=== PATIENT | male | born 1940 | race Caucasian/White ===

== ENCOUNTER 2016-03-22 15:30 | Emergency (ER) | payer OTHER ==
[~2016-03-22] VITALS: Ht 182.9 cm; Wt 132.4 kg
[~2016-03-22 15:30] MED LIST: Amaryl PO; Cozaar PO; Ecotrin PO; Hydrodiuril,Oretic,E PO; Januvia PO; K-Dur PO; Lipitor PO; PRILOSEC40 MG PO; Toprol XL PO; Vicodin,Norco 5/325 PO; Vitamin D PO; celeBREX PO
[2016-03-22 16:00] LABS: HEMATOCRIT 41.8 % (38.0-50.0); MCH 29.1 PG (29.0-34.0); MCHC 33.3 G/DL (30.0-36.0); MCV 87.6 FL (86-99); MEAN PLAT.VOLUME 11.4 uM^3 (9.0-12.4); PLATELET COUNT 161 K/uL (156-360); RBC DIS.WIDTH-CV 12.3 % (11.8-14.6); RED BLOOD COUNT 4.77 M/uL (4.00-5.50); WHITE BLOOD COUNT 8.5 K/uL (4.1-10.2)
[2016-03-22 16:02] LABS: POINT-OF-CARE METER ID UU13113778
[2016-03-22 16:10] LABS: CHLORIDE 105 mEq/L (99-109); POTASSIUM 4.6 mEq/L (3.7-5.4); SODIUM 140 mEq/L (136-147)
[2016-03-22 16:12] LABS: GLUCOSE 217 mg/dL (70-99)
[2016-03-22 16:13] LABS: ANION GAP 11 MEQ/L (2-14)
[2016-03-22 16:14] LABS: TOTAL BILIRUBIN 1.1 mg/dL (0.0-1.0)
[2016-03-22 16:16] LABS: ALKALINE PHOSPHATASE 97 IU/L (3-129); GFR ESTIMATE (CALCULATED) 57 mL/min/
[2016-03-22 16:17] LABS: UREA NITROGEN (BUN) 12 mg/dL (9-23)
[2016-03-22 17:51] LABS: ADD MIUA? NO; BILIRUBIN NEGATIVE; BLOOD NEGATIVE; COLOR YELLOW ((YELLOW)); GLUCOSE (STRIP) 250; KETONES NEGATIVE; LEUKOCYTES NEGATIVE; NITRITE NEGATIVE; PROTEIN (STRIP) NEGATIVE; SPECIFIC GRAVITY 1.019 (1.000-1.030); UCUL ADDED? NO
[2016-03-22] MEDS ORDERED: LEVEMIR FL100 UNIT/1 SC (18:03)
[2016-03-22] MEDS ORDERED: ZOFRAN ODT8 MG PO (19:01)
[2016-03-22 19:29] VITALS: BP 172/83
== END 2016-03-22 19:30 | disposition home or self-care (01) ==
LOC: EME 15:30
DX: E11.65 Type 2 diabetes mellitus with hyperglycemia (principal); R11.0 Nausea; I10 Essential (primary) hypertension; K21.9 Gastro-esophageal reflux disease without esophagitis; G47.30 Sleep apnea, unspecified; Z87.442 Personal history of urinary calculi; Z85.46 Personal history of malignant neoplasm of prostate; Z96.653 Presence of artificial knee joint, bilateral; Z79.4 Long term (current) use of insulin
CPT/HCPCS: 80053; 81003; 82948; 85027; 99281; 99285